=== PATIENT | female | born 1960 | race Caucasian/White ===

== ENCOUNTER 2024-12-21 11:28 | Outpatient (CLI) | payer OTHER, SELFPAY ==
--- NOTE | ~2024-12-21 | CT_ITS ---
EXAMINATION:CT lung screening DATE: 12/21/2024 11:54 INDICATION: Personal history of nicotine dependence. TECHNIQUE: Computed tomography (CT) of the chest was performed without intravenous contrast. Automated exposure control and iterative reconstruction technique were employed. The dose-length product (DLP) was 136.89 mGy-cm. COMPARISON: None. FINDINGS: There is mild emphysema. There is mild atelectasis bilaterally. There is mild scarring in paraspinal right lower lobe. A calcified left lung nodule and calcified hilar and mediastinal lymph nodes are consistent with old granulomatous disease. No pleural effusion. The heart size is normal. No pericardial effusion. There are coronary artery calcifications. There is diffuse hepatic steatosis. There is a gallstone in the gallbladder. Calcifications in the spleen are consistent with old granulomatous disease. There is mild thoracic spondylosis. IMPRESSION: 1. Lung-RADS category 2: Benign appearance or behavior. Continue annual screening with noncontrast low-dose chest CT in 12 months. Reviewed, dictated and finalized at location E. IMPRESSION: 1. Lung-RADS category 2: Benign appearance or behavior. Continue annual screeni ng with noncontrast low-dose chest CT in 12 months.
--- NOTE | ~2024-12-21 | MM_ITS ---
EXAMINATION: MM screening harmony BI w lemuel HISTORY: Screening TECHNIQUE: Craniocaudal and mediolateral oblique 3-D tomosynthesis images were obtained and synthetic 2-D images were generated. CAD analysis was submitted and interpreted. COMPARISON: No prior mammogram is available for comparison at this institution. BREAST PARENCHYMAL COMPOSITION: The breasts are heterogeneously dense, which may obscure small masses. FINDINGS: There is no evidence of suspicious mass, calcification, or architectural distortion to suggest malignancy. Benign hamartoma in the lower inner right breast posterior depth. IMPRESSION: 1. No mammographic evidence of malignancy. Recommend routine screening mammography in one year. BI-RADS Category 2: Benign finding(s) Reviewed, dictated and finalized at location Q. IMPRESSION: 1. No mammographic evidence of malignancy. Recommend routine screening mammogra phy in one year. BI-RADS Category 2: Benign finding(s)
--- OUTSIDE RECORDS SUMMARY | 2024-12-21 11:55 | XMS_ITS | Clinical Summary ---
Author Organization [facility] Address [address] [place] [address] Care Team Providers Care Fence Setter Name Role Phone DoloresUche raymond DO Primary Care Provider Allergies No known active allergies Medications cetirizine (ZYRTEC ALLERGY) 10 MG tablet Take 1 tablet by mouth daily. Active Glucose Blood (ONE TOUCH ULTRA TEST STRIPS) test stripIndication s:Type 2 diabetes mellitus without complication, without long-term current use of insulin ([facility] HHS/HCC) 1 strip by Other route as needed. Use as instructed 100 strip 0 Active Glucose Blood (ACCU-CHEK ANNALISA PLUS) test stripIndication s:Type 2 diabetes mellitus without complication, without long-term current use of insulin ([facility]CC HHS/HCC) 1 strip by Other route daily. Use as instructed 100 strip 0 Active Active Problems Problem Noted Date Diagnosed Date Mixed hyperlipidemia 11/08/2019 Elevated liver enzymes 03/24/2017 Abnormal mammogram 03/24/2017 Hypertension 03/24/2017 Type 2 diabetes mellitus ([facility] HHS/HCC) 03/24 Resolved Problems Problem Noted Date Diagnosed Date Resolved Date Encounter for preventive health examination 03/02/2017 12/15/2019 Immunizations Immunization Administration Dates Next Due Flucelvax 6 Months+ (Prefilled Syringe) 01/15/20 Hepatitis A (Generic) 03/24/2017,09/03/2016 Hepatitis B (Generic: Adult) 03/24/2017,10/02/19 17,09/03/2016 Influenza (Generic) 01/28/2018 Shingrix 04/08/2019,01/14/2019 Tdap (Generic) 06/24/2016 Family History Medical History Relation Comments Breast Cancer Maternal Aunt Alzheimers Maternal Grandmother malignant neoplasm of brain Maternal Grandmother Diabetes Mother primary biliary cholangitis Mother Relation Status Comments Maternal Aunt Maternal Grandmother Mother Social History Tobacco Use Types Packs/Day Years Used Date Smoking Tobacco: Former Smokeless Tobacco: Never Alcohol Use Standard Drinks/Week Comments Yes 0 (1 standard drink = 0.6 oz pur e alcohol) PHQ-2 Answer Date Recorded PHQ-2 Score - If the patient scores above 3, please move on to questions 3-9 0 11/08/2019 Comments Unknown Sex and Gender Information Value Date Recorded Sex Assigned at Not on file Legal Sex Female 9:36 PM CDT Gender Identity Not on file Sexual Orientation Not on file Last Filed Vital Signs Vital Sign Reading Time Taken Comments Blood Pressure 150/90 11/08/2019 2:24 PM CDT Pulse 72 03/24/2019 11:16 AM MINE INSPECTOR Temperature 36.8 C (98.3 F) 04/17/2019 1:33 PM MINE INSPECTOR Respiratory Rate - - Oxygen Saturation 96% 08/09/2018 9:03 AM CDT Inhaled Oxygen Concentration - - Weight 87.5 kg (193 lb) 11/08/2019 2:24 PM CDT Height 167.6 cm (5' 6) 04/17/2019 1:33 PM MINE INSPECTOR Body Mass Index 31.15 04/17/2019 1:33 PM MINE INSPECTOR Plan of Treatment Health Maintenance Due Date Last Done Comments Cervical Cancer Screening Pa p Smear (Age 30 to 64) Every 3 Years 1961 Kidney Health Evaluation 1961 Diabetes: Retinopathy Eye Exam 1979 Pneumococcal Vaccine: 50+ Years (1 of 2 - PCV) 1980 Cervical Cancer Screening Pa p with HPV Testing (Age 30 to 64) Every 5 Years 1991 Cervical Cancer Screening wi th HPV 1991 Annual Physical 03/24/2020 03/24/2019 Lipid Panel 04/03/2020 04/03/2019, 03/27/2017 Hemoglobin A1C 05/10/2020 11/08/2019, 04/03/2019, 03/27/2017 Mammogram Screening 03/28/2021 03/28/2019 COVID-19 Vaccine ( - 2023-2 5 season) 2024 DTaP, Tdap and Td Vaccines ( 2 - Td or Tdap) 06/24/2026 06/24/2016 Colorectal Cancer Screening Colonoscopy (10 Years) 06/12/2029 06/13/2019, 05/06/2017 RSV Immunization or 60+ Years (1 - 1-dose 75+ series) 2036 Hepatitis C Completed 07/09/2017 Zoster Vaccines Completed 04/08/2019, 01/14/2019 Meningococcal B Vaccine Aged Out No l onger eligible based on patient's age to complete this topic Meningococcal Vaccine Aged Out No ethel ciera eligible based on patient's age to complete this topic RSV Immunizations Under 20 Months Aged Out No longer eligible b ased on patient's age to complete this topic Procedures Procedure Name Priority Date/Time Associated Diagnosis Comments HEMOGLOBIN, GLYCOSYLATED Routine 11/08/2019 3:00 PM CDT Type 2 diabetes mellitus without complication, without long-term current use of insulin COLONOSCOPY GENERIC (SCAN ORDER) Routine 06/13/2019 LIPID PANEL Routine 04/03/2019 9:35 AM MINE INSPECTOR Type 2 diabetes mellitus without complication, without long-term current use of insulin Encounter for preventive health examination MG SCREENING W SELINA JESSICA DIGI Routine 03/28/2019 11:11 AM MINE INSPECTOR Breast cancer screening HEPATITIS C ANTIBODY Routine 07/09/2017 12:00 AM CDT from Last 3 Months or Most Recently Relevant to Health Maintenance Results * HEMOGLOBIN A1C (GLYCOSYLATED) (11/08/2019 3:00 PM CDT) HGB A1C 5.3 % [facility] 11/08/2019 3:00 PM CDT us Uche Moore DO LABORATORY Final Resul t [facility] [address] [address], [place] * COLONOSCOPY (06/13/2019) us Documents Scanned SCANNING Final Result [facility] * (ABNORMAL) LIPID PANEL (04/03/2019 9:35 AM MINE INSPECTOR) CHOLESTEROL 218(H) <200 mg/dL [facility] HDL 36(L) >50 mg/dL [facility] TRIGLYCERIDES 227(H) <150 mg/dL [facility] Comment: If a non-fasting specimen was collected, consider repeat triglyceride testing on a fasting specimen if clinically indicated. Ellis et al. J. of Clin. Lipidol. 2015;9:129-169. LDL (CALCULATED) 145(H) mg/dL (calc) [facility] Comment: Reference range: <100 Desirable range <100 mg/dL for primary prevention; <70 mg/dL for patients with CHD or diabetic patients with > or = 2 CHD risk factors. LDL-C is now calculated using the Tariq-Vásquez calculation, which is a validated novel method providing better accuracy than the Friedewald equation in the estimation of LDL-C. Tariq SS et al. BERTO. 2013;310(19): 2232-7868 (http://education.[employer]/faq/WTB946) CHOL/HDL RATIO 6.1(H) <5.0 (calc) [facility] NON HDL CHOLESTEROL 182(H) <130 mg/dL (calc) [facility] Comment: For patients with diabetes plus 1 major ASCVD risk factor, treating to a non-HDL-C goal of <100 mg/dL (LDL-C of <70 mg/dL) is considered a therapeutic option. 04/03/2019 9:35 AM MINE INSPECTOR 04/04/2019 4:13 AM MINE INSPECTOR Narrative Resulting Agency Comment Performing Organization Information: Site ID: [place] Name: [facility] Address: [address] [address] Director: Scott Dumont D.O., MPH us Uche Moore DO LABORATORY Final Resul t [facility] * MG SCREENING W SELINA JESSICA DIGI (03/28/2019 11:11 AM MINE INSPECTOR) Anatomical Region Laterality Modality Breast Bilateral Mammography 04/03/2019 12:4 9 PM MINE INSPECTOR Impressions 04/03/2019 12:54 PM MINE INSPECTOR =====IMPRESSION:===== No mammographic findings suggestive of malignancy. ASSESSMENT: ACR BI-RADS Category 2 - Benign. RECOMMENDATION: 1: Routine screening mammogram bilateral in 1 year Narrative 04/03/2019 12:54 PM MINE INSPECTOR EXAMINATION: Digital bilateral screening mammogram with 3-D tomosynthesis EXAM DATE/TIME: 03/28/2019 10:57 AM REASON FOR EXAM: Routine screening. COMPARISON: 04/15/2017, 09/22/2016 TECHNIQUE: Digital screening mammography of both breasts was performed in addition to 3-D Tomosynthesis technique. This study was read with the assistance of a computer-aided detection system. TISSUE DENSITY: The breast tissue contains scattered fibroglandular densities. FINDINGS: In the right breast, there is an ovoid predominantly fatty lesion medially compatible with a benign hamartoma. The left breast is relatively unremarkable. Scattered benign-appearing calcifications are noted bilaterally. There are no suspicious calcifications, masses, architectural distortion or skin thickening. Uche Falconchcock DO MAMMO Final Resul t * HEPATITIS C ANTIBODY (07/09/2017 12:00 AM CDT) HEPATITIS C AB MEDGR OUP TO EPIC CONVERSION HEPATITIS C AB MEDGR OUP TO EPIC CONVERSION HEPATITIS C AB MEDGR OUP TO EPIC CONVERSION HEPATITIS C AB MEDGR OUP TO EPIC CONVERSION 07/09/2017 07/09/2017 Narrative [facility] TO EPIC CONVERSION - 07/19/2017 10:40 AM CDT Result Communication: No patient communication needed at this time Mario Roper MD LABORATORY Final Result [facility] TO EPIC CONVERSION from Last 3 Months or Most Recently Relevant to Health Maintenance Insurance [facility] Care Teams Fence Setter Relationship Specialty Start Date End Date Uche Moore DO PCP - General FAMILY PRACTICE 07/08/17
== END 2024-12-21 11:29 | disposition home or self-care (01) ==
PROVIDERS: PCP Family Medicine; Visit Provider Family Medicine
DX: Z12.2 Encounter for screening for malignant neoplasm of respiratory organs (principal); Z87.891 Personal history of nicotine dependence; Z12.31 Encounter for screening mammogram for malignant neoplasm of breast
CPT/HCPCS: 71271; 77063; 77067

== ENCOUNTER 2025-01-15 09:35 | Day surgery (SDC) | payer OTHER, SELFPAY ==
[2025-01-02 13:10] VITALS: BMI 36.3
[2025-01-15 10:01] VITALS: BP 141/69; PULSE 68; RESP 16; TEMP 36.8; O2SAT 98
[2025-01-15] MEDS: LACTATED RINGERS 1,000 ML 150 ML IV CONT (10:13)
--- OUTSIDE RECORDS SUMMARY | 2025-01-15 10:22 | XMS_ITS | Clinical Summary ---
Author Organization [facility] Address [address] [place] [address] Care Team Providers Care Art Instructor Name Role Phone OscarUche raymond DO Primary Care Provider [phone] Allergies No known active allergies Medications cetirizine (ZYRTEC ALLERGY) 10 MG tablet Take 1 tablet by mouth daily. Active Glucose Blood (ONE TOUCH ULTRA TEST STRIPS) test stripIndication s:Type 2 diabetes mellitus without complication, without long-term current use of insulin ([facility] HHS/HCC) 1 strip by Other route as needed. Use as instructed 100 strip 0 Active Glucose Blood (ACCU-CHEK ANNALISA PLUS) test stripIndication s:Type 2 diabetes mellitus without complication, without long-term current use of insulin ([facility] HHS/[facility]) 1 strip by Other route daily. Use as instructed 100 strip 0 Active Active Problems Problem Noted Date Diagnosed Date Mixed hyperlipidemia 11/08/2019 Elevated liver enzymes 03/24/2017 Abnormal mammogram 03/24/2017 Hypertension 03/24/2017 Type 2 diabetes mellitus 03/24/2017 Resolved Problems Problem Noted Date Diagnosed Date Resolved Date Encounter for preventive health examination 03/02/2017 12/15/2019 Immunizations Immunization Administration Dates Next Due Flucelvax 6 Months+ (Prefilled Syringe) 01/15/20 19 Hepatitis A (Generic) 03/24/2017,09/03/2016 Hepatitis B (Generic: [...] PM CDT Pulse 72 03/24/2019 11:16 AM TENSION MACHINE OPERATOR Temperature 36.8 C (98.3 F) 04/17/2019 1:33 PM TENSION MACHINE OPERATOR Respiratory Rate - - Oxygen Saturation 96% 08/09/2018 9:03 AM CDT Inhaled Oxygen Concentration - - Weight 87.5 kg (193 lb) 11/08/2019 2:24 PM CDT Height 167.6 cm (5' 6) 04/17/2019 1:33 PM TENSION MACHINE OPERATOR Body Mass Index 31.15 04/17/2019 1:33 PM TENSION MACHINE OPERATOR Plan of Treatment Health Maintenance Due Date [...] 03/27/2017 Mammogram Screening 03/28/2021 03/28/2019 COVID-19 Vaccine (2023-2 5 season) 2024 Influenza Adult (#1) 2025 01/14/2019, 01/28/2018 DTaP, Tdap and Td Vaccines ( 2 [...] 06/13/2019 LIPID PANEL Routine 04/03/2019 9:35 AM TENSION MACHINE OPERATOR Type 2 diabetes mellitus without complication, without long-term current use of insulin Encounter for preventive health examination MG SCREENING W SELINA JESSICA DIGI Routine 03/28/2019 11:11 AM TENSION MACHINE OPERATOR Breast cancer screening HEPATITIS C ANTIBODY Routine 07/09/2017 12:00 AM CDT from Last 3 Months or Most Recently Relevant to Health Maintenance Results * HEMOGLOBIN A1C (GLYCOSYLATED) (11/08/2019 3:00 PM CDT) HGB A1C 5.3 % [facility] 11/08/2019 3:00 PM CDT us Uche Moore DO LABORATORY Final Resul t [facility] [address] [facility] [address] [place] [address], [place] * COLONOSCOPY (06/13/2019) us Documents Scanned SCANNING Final Result [facility] * (ABNORMAL) LIPID PANEL (04/03/2019 9:35 AM TENSION MACHINE OPERATOR) CHOLESTEROL 218(H) <200 mg/dL [facility] [...] LDL-C. Tariq SS et al. BERTO. 2013;310(19): 7477-4231 (http://education.[employer].org/faq/ZGM358) CHOL/HDL RATIO 6.1(H) <5.0 (calc) [facility] NON HDL CHOLESTEROL 182(H) <130 mg/dL (calc) [facility] Comment: For patients with diabetes plus 1 major ASCVD risk factor, treating to a non-HDL-C goal of <100 mg/dL (LDL-C of <70 mg/dL) is considered a therapeutic option. 04/03/2019 9:35 AM TENSION MACHINE OPERATOR 04/04/2019 4:13 AM TENSION MACHINE OPERATOR Narrative Resulting Agency Comment Performing Organization Information: Site ID: [place] Name: [facility] Address: [address] [address] Director: Scott Dumont D.O., MPH [facility] DO LABORATORY Final Resul t [facility] * MG SCREENING W SELINA JESSICA DIGI (03/28/2019 11:11 AM TENSION MACHINE OPERATOR) Anatomical Region Laterality Modality Breast Bilateral Mammography 04/03/2019 12:4 9 PM TENSION MACHINE OPERATOR Impressions 04/03/2019 12:54 PM TENSION MACHINE OPERATOR =====IMPRESSION:===== No mammographic findings suggestive of malignancy. ASSESSMENT: ACR BI-RADS Category 2 - Benign. RECOMMENDATION: 1: Routine screening mammogram bilateral in 1 year Narrative 04/03/2019 12:54 PM TENSION MACHINE OPERATOR EXAMINATION: Digital bilateral screening mammogram with 3-D [...] masses, architectural distortion or skin thickening. Uche Juares Armstrong MAMMO Final Resul t * HEPATITIS C [...] No patient communication needed at this time us Mario Roper MD LABORATORY Final Result [facility] TO EPIC CONVERSION from Last 3 Months or Most Recently Relevant to Health Maintenance Insurance [facility] [address] [facility] Care Teams Art Instructor Relationship Specialty Start Date End Date Uche Moore DO PCP - General FAMILY PRACTICE 07/08/17
--- NOTE | 2025-01-15 10:59 | WPDANESEPPF ---
Anes - Initial Pre Proc Eval Procedure: Operation Date: 01/15/25 11:15 Proposed Procedures p Screening Colonoscopy - Sylvain Aguilar DO Date/Time: 01/15/25 10:59 Surgeon: Sylvain Aguilar DO Pre Op Diagnosis: Polyp of colon Patient Data Age: 64 Gender: F Height: 1.68 m Weight: 102.45 kg Last Vital Signs Temp 98.2 F 01/15/25 10:01 Pulse 68 01/15/25 10:01 Resp 16 01/15/25 10:01 BP 141/69 H 01/15/25 10:01 Pulse Ox 98 01/15/25 10:01 O2 Del Method Room Air 01/15/25 10:01 Allergies Allergy/AdvReac Type Severity Reaction Status Date / Time No Known Allergies Allergy Verified 01/15/25 09:59 Home Medications ?Medication ?Instructions ?Recorded ?Confirmed ?Type amlodipine 5 mg tablet 5 mg PO DAILY #90 tabs 11/21/24 01/15/25 Rx atorvastatin 10 mg tablet (Lipitor) 10 mg PO DAILY #30 tabs 12/26/24 01/15/25 Rx metformin 500 mg tablet 500 mg PO BID #180 tabs 01/01/25 01/15/25 Rx bupropion HCl 300 mg 24 hr tablet, 300 mg PO QAM #90 tabs 01/12/25 01/15/25 Rx extended release dapagliflozin propanediol 10 mg 10 mg PO DAILY #90 tabs 01/12/25 01/15/25 Rx tablet (Farxiga) Laboratory Tests 01/15/25 10:17 POC Capillary Glucose 168 H mg/dl (65-105) Patient hx anesthesia problems: none Family hx anesthesia problems: none Results Review: All pre-operative results and documents have been reviewed as part of the pre-operative evaluation. PMFSH Past Medical History Medical History Diabetes type 2, controlled Surgical History Surgical History Hx of tubal ligation Family History Family History Mother Diabetes mellitus Hypertension Primary sclerosing cholangitis Social History Social History (Reviewed 01/12/25 @ 09:02 by ALBERTO Shah Smoking packs per day: 1 Smoking cigarettes per day: 20.0 Years smoked: 20 Smoking pack-years: 20.00 Smoking status: Former smoker Tobacco type: cigarettes Alcohol intake: current Drinks per week: 6 Substance use: never Substance use type: does not use Do You Feel Safe in your Home?: Yes Lack of Transportation: No Lack of Food: Never True Current Housing: I Have Housing Concerned About Future Housing: No Difficulty Paying Gas/Electric Bills: No Difficulty Paying for Meds: No Currently Unemployed: No Education: Associate Degree Difficulty w/ Childcare or Family Care: No Living arrangements: with family Occupation/Education: retired Gender identity (if verbalized by the patient): Female Sexual Orientation (if Verbalized by the Patient): Straight or Heterosexual Spiritual care concerns: No Agree to blood products: Yes Anes - Eval Final PreProcedure Day of Procedure 01/15/25 10:59 Heart: regular rate and rhythm Lungs: clear to auscultation Airway: Mallampati scale class II Neurological: alert and oriented ASA classification: II Anesthesia type and monitoring: monitored anesthesia care Results Review: All pre-operative results and documents have been reviewed as part of the pre-operative evaluation. Informed Consent: The patient's anesthetic plan and its attendant risks and benefits were discussed with the patient/family/POA. Questions were solicited and answers provided to the satisfaction of the patient/family/POA.
--- NOTE | 2025-01-15 11:53 | PM.IMHP ---
H&P: HPI History of Present Illness Date/Time: 01/15/25 11:53 Chief Complaint: hx colon polyps Narrative: 64 yo woman presents for colonoscopy. Last done 5 years ago and polyps removed. Denies fam hx colon cancer. Denies hematochezia/melena. Review of Systems Review of Systems: All systems reviewed & are unremarkable except as noted in HPI and below Constitutional: Constitutional: Denies chills, Denies fever(s), Denies headache(s) and Denies weight loss Eyes: Eyes: Denies change in vision ENT: Denies dizziness, Denies headache(s), Denies neck mass and Denies throat swelling Cardiovascular: Cardiovascular: Denies chest pain, Denies lightheadedness and Denies dyspnea Respiratory: Respiratory: Denies cough, Denies dyspnea and Denies wheezing Gastrointestinal: Gastrointestinal: Denies abdominal pain, Denies change in bowel habits, Denies nausea and Denies vomiting Genitourinary: Genitourinary: Denies hematuria and Denies dysuria Musculoskeletal: Musculoskeletal: Reports as per HPI Integumentary/Breasts: Skin/Breast: Reports as per HPI Neurologic: Denies dizziness and Denies headache(s) Allergic/Immunologic: Allergic/Immunologic: Denies throat swelling and Denies wheezing PMFSH Past Medical History Medical History Diabetes type 2, controlled Surgical History Surgical History Hx of tubal ligation Family History Family History Mother Diabetes mellitus Hypertension Primary sclerosing cholangitis Social History Social History Smoking packs per day: 1 Smoking cigarettes per day: 20.0 Years smoked: 20 Smoking pack-years: 20.00 Smoking status: Former smoker Tobacco type: cigarettes Alcohol intake: current Drinks per week: 6 Substance use: never Substance use type: does not use Do You Feel Safe in your Home?: Yes Lack of Transportation: No Lack of Food: Never True Current Housing: I Have Housing Concerned About Future Housing: No Difficulty Paying Gas/Electric Bills: No Difficulty Paying for Meds: No Currently Unemployed: No Education: Associate Degree Difficulty w/ Childcare or Family Care: No Living arrangements: with family Occupation/Education: retired Gender identity (if verbalized by the patient): Female Sexual Orientation (if Verbalized by the Patient): Straight or Heterosexual Spiritual care concerns: No Agree to blood products: Yes Meds Home Medications and Allergies Home Medications ?Medication ?Instructions ?Recorded ?Confirmed ?Type amlodipine 5 mg tablet 5 mg PO DAILY #90 tabs 11/21/24 01/15/25 Rx atorvastatin 10 mg tablet (Lipitor) 10 mg PO DAILY #30 tabs 12/26/24 01/15/25 Rx metformin 500 mg tablet 500 mg PO BID #180 tabs 01/01/25 01/15/25 Rx bupropion HCl 300 mg 24 hr tablet, 300 mg PO QAM #90 tabs 01/12/25 01/15/25 Rx extended release dapagliflozin propanediol 10 mg 10 mg PO DAILY #90 tabs 01/12/25 01/15/25 Rx tablet (Farxiga) Allergies Allergy/AdvReac Type Severity Reaction Status Date / Time No Known Allergies Allergy Verified 01/15/25 09:59 Vital Signs Vital Signs - 24 hr 01/15/25 10:01 Temperature 98.2 F Pulse Rate 68 Respiratory Rate 16 Blood Pressure 141/69 H Pulse Oximetry 98 Oxygen Delivery Room Air Exam Const: General: no acute distress and alert Orientation/consciousness: patient oriented x3 HENMT: Head: normocephalic and atraumatic Ears: hearing grossly normal bilaterally Face/Nose/Sinus: Normal nares present Mouth: Yes Normal oral and palatal mucosa present Eyes: Periorbital: periorbital findings normal Sclera: sclerae normal EOM: EOMs intact bilaterally Neck: Neck: normal visual inspection, no lymphadenopathy and trachea midline Chest: Chest palpation & inspection: normal inspection of the chest Resp: Effort & Inspection: normal respiratory effort Auscultation: clear to auscultation bilaterally Cardio: Jugular venous distension: no JVD Rate: regular rate Rhythm: regular rhythm Heart sounds: S1 normal heart sound present and S2 normal heart sound present Peripheral pulses: Peripheral pulses 2+ throughout GI: Inspection: normal to inspection GI Palp: Yes Soft to palpation, No Tenderness to palpation present (GI), No Guarding due to palpation present (GI) and No Rebound tenderness present Percussion: Yes normal to percussion Auscultation: normal bowel sounds : General: Yes no CVA tenderness Back/Spine/Pelvis: Back: no CVA tenderness Neuro: General: patient oriented x3, no focal motor deficits and CN's II-XI intact bilaterally Cognition (Neuro): normal cognition Speech: normal speech Motor exam (neuro): 5/5 motor strength present throughout Extrem: General: capillary refill normal and no clubbing, cyanosis or edema Assessment and Plan Assessment and plan (1) Hx of colonic polyps: Code(s): Z86.0100 - Personal history of colon polyps, unspecified Status: Acute Assessment and Plan: I have recommended colonoscopy. I have discussed the procedure, risks, benefits, and alternatives. Questions were answered. Patient is agreeable to proceed.
--- NOTE | 2025-01-15 12:12 | WPDANESPN ---
Anes - Prog Note Post-Op Date/Time: 01/15/25 12:12 Vital Signs: Last Vital Signs Temp 98.2 F 01/15/25 10:01 Pulse 68 01/15/25 10:01 Resp 16 01/15/25 10:01 BP 141/69 H 01/15/25 10:01 Pulse Ox 98 01/15/25 10:01 O2 Del Method Room Air 01/15/25 10:01 Pain Score (VAS): no 01/15/25 10:17 POC Capillary Glucose 168 H Patient Feedback: Patient satisfied with anesthetic care.
[2025-01-15 12:15] VITALS: BP 106/63; PULSE 63; RESP 18; O2SAT 99
[2025-01-15 12:25] VITALS: BP 117/74; PULSE 66; RESP 16; O2SAT 99
[2025-01-15 12:35] VITALS: BP 127/67; PULSE 67; RESP 16; O2SAT 98
== END 2025-01-15 12:50 | disposition home or self-care (01) ==
PROVIDERS: PCP Family Medicine; Visit Provider Surgery
PROC: 0DJD8ZZ Inspection of Lower Intestinal Tract, Via Natural or Artificial Opening Endoscopic (ICD-10-PCS; CPT 45378; principal; 2025-01-15 11:15)
DX: Z12.11 Encounter for screening for malignant neoplasm of colon (principal); K57.30 Diverticulosis of large intestine without perforation or abscess without bleeding; Z86.0100 Personal history of colon polyps, unspecified
CPT/HCPCS: 45378